=== PATIENT | male | born 1950 | race Caucasian/White ===

== ENCOUNTER → 2017-09-13 | Outpatient (CLI) | payer OTHER ==
[~2017-09-13] MED LIST: ALBU1NEB10 INH; ALBUAER19 INH; ASPI-435 PO; ATV/1 PO; CYAN500T PO; GLIM2TAB2 PO; HYDR-5688 PO; KETO0.5S33 OPR; LPT/40 PO; METF500T PO; MOME100A INH; NXM/40 PO; OXGN; PRED-301 PO; PRED1SUS OPR; SYMIN160 INH; TAMS0.4C38 PO
--- NOTE | 2017-09-13 14:33 | DIAGNOSTIC IMAGING REPORT ---
VIDEO SWALLOW CLINICAL HISTORY: 66 years-old Male with R06.02 Shortness of [id number] [id number] Aspiration pneumon. Acute shortness of breath TECHNIQUE: Video fluoroscopic evaluation of swallowing was performed in the AP and lateral projections by the speech pathology staff. The patient is fed nectar-thick and thin liquid barium, a barium coated wafer, and barium pudding. FLUOROSCOPY TIME: 2.1 minutes. 750 images were submitted. COMPARISON STUDY: Chest CT 10/11/2016. FINDINGS: There is trace penetration with thin liquids. No aspiration identified throughout the study. Mild tertiary contractions of the distal esophagus are noted. Prolonged oral pharyngeal phase with cracker consistency. Multilevel endplate spurring about the cervical spine. Swallowing function is otherwise unremarkable. Mild residue collection within the vallecula. IMPRESSION: 1. Trace laryngeal penetration with thin liquids. No aspiration identified. 2. Please see the speech pathologist report for detailed findings and recommendations. Electronically signed by: Cedric Purdy M.D. 09/13/2017 2:32 PM Dictated Date/Time: 09/13/2017 2:28 PM
--- NOTE | 2017-09-13 14:56 | SWALLOWING EVALUATION ---
HISTORY: This 66 year old man was referred for a video swallow study at [facility] in order to rule out aspiration and identify the safest consistencies for optimal oral intake. Patient reports he has episodes of coughing while eating/drinking food. He reports they do not occur all of the time, but when it happens, the coughing episode may last for several minutes and results in him expectorating food. PMH is significant for: COPD, GERD, HLD, DM2, and arthritis. Current diet is regular. PROCEDURE: The patient was seen in the Radiology Department of [facility] for the VFSS. Cursory examination of the oral cavity revealed the patient to have upper and lower dentition in good condition. Movement of the articulators was wnl. The patient was seated upright on a stool and was viewed in both the Anterior-Posterior (A-P) and Lateral planes. Volitional phonation exercises completed in the A-P plane revealed bilateral vocal fold movement. Vocal intensity was wnl. In the lateral plane, the patient was given the following boluses: 1 tsp. thin liquid barium x 2, single swallow thin liquid barium self-presented from a cup, sequential swallows of thin liquid barium self-presented from a straw, 1 tsp. nectar-thick liquid barium, single swallow nectar-thick liquid barium self-presented from a cup, 1 tsp. barium pudding, and 1 club cracker coated in barium pudding. The patient was then repositioned into the A-P plane and given the following boluses: 1 tsp. nectar thick barium and 1 tsp. barium pudding. RESULTS: Oral Stage: Lip closure was adequate. The patient was able to maintain a cohesive liquid bolus in the oral cavity during the liquid bolus hold task. Mastication was mildly slow. Lingual motion for bolus transport was also noted to be slow. There was retention lining the tongue and palate after the initial swallow. The initiation of the pharyngeal swallow was delayed occurred when the bolus head reached the valleculae. Pharyngeal Stage: Soft palate elevation was complete. Laryngeal elevation revealed partial superior movement of the thyroid cartilage and partial approximation of the arytenoids to the epiglottic base. Anterior hyoid excursion was partially reduced. Epiglottic deflection was incomplete and at times did not progress past the horizontal position. Laryngeal vestibular closure was incomplete, with a narrow column of contrast being located in the vestibule at the height of the swallow. The pharyngeal stripping wave was present yet diminished. Pharyngeal contraction was complete. There was complete distention and duration of the opening to the pharyngoesophageal segment (PES). Tongue base retraction was partially reduced with a narrow column of contrast located between the tongue base and pharyngeal wall during the swallow. There was trace retention located in the valleculae and pyriforms after the swallow. There was evidence of minimal laryngeal penetration with thin liquid, otherwise there was no evidence for aspiration during this study. Mild retention that remained in the valleculae with solids cleared with a second swallow. No other difficulty identified. Esophageal stage: There was mild distal retention in the esophagus with retrograde flow below the PES. The retention cleared with a liquid wash. SUMMARY/RECOMMENDATIONS: This patient presents with mild yasmeen-pharyngeal dysphagia. The following is recommended: 1. Regular diet, thin liquids. 2. Aspiration and GERD precautions. Straws OK. Fully upright for meals and for 30 minutes after meals. Do not lay flat, elevate head of the bed to at least 30 degrees at all time, to include while sleeping. 3. Safe swallow strategies: Alternate solids and liquids. A summary of the results and recommendations was discussed with the patient and with verbal understanding. Thank you for referral of this patient. Please contact me at if any additional information is needed.
== END | disposition home or self-care (01) ==
LOC: C.RAD 13:05
PROVIDERS: ATTEND Internal Medicine Critical Care Medicine
DX: J45.909 Unspecified asthma, uncomplicated (principal); J69.0 Pneumonitis due to inhalation of food and vomit; R06.02 Shortness of breath

== ENCOUNTER → 2017-09-20 | Outpatient (CLI) | payer OTHER ==
[~2017-09-20] MED LIST changes: -SYMIN160 INH
[2017-09-20 17:54] LABS: HEMATOCRIT 40.5 % (42-52); HEMOGLOBIN 13.1 g/dL (14.0-18.0); MEAN CELL VOLUME 83.2 fL (80-100); MEAN CORPUSCULAR HEMOGLOBIN 26.9 pg (25-34); MEAN CORPUSCULAR HGB CONC 32.3 g/dl (32-36); MEAN PLATELET VOLUME 10.9 fL (7.4-10.4); NUCLEATED RED BLOOD CELL ABS 0.02 K/uL (0-0); PLATELET COUNT 296 K/uL (130-400); RED CELL DISTRIBUTION WIDTH CV 16.3 % (11.5-14.5); RED CELL DISTRIBUTION WIDTH SD 49.1 fL (36.4-46.3); WHITE BLOOD COUNT 10.39 K/uL (4.8-10.8)
[2017-09-20 18:10] LABS: INR 0.9 (0.9-1.1); PTT PATIENT 22.6 SECONDS (21.0-31.0)
[2017-09-20 18:13] LABS: ALBUMIN 3.2 gm/dl (3.4-5.0); ALT/SGPT 35 U/L (12-78); AST/SGOT 18 U/L (15-37); BLOOD UREA NITROGEN 16 mg/dl (7-18); CALCIUM 8.6 mg/dl (8.5-10.1); CARBON DIOXIDE 29 mmol/L (21-32); CREATININE 1.06 mg/dl (0.60-1.40); GLUCOSE 111 mg/dl (70-99); POTASSIUM 3.8 mmol/L (3.5-5.1); SODIUM 140 mmol/L (136-145)
[2017-09-20 18:15] LABS: ALKALINE PHOSPHATASE 97 U/L (45-117)
== END | disposition home or self-care (01) ==
LOC: C.LABMFLN 11:48
PROVIDERS: ATTEND Internal Medicine Critical Care Medicine
DX: R06.02 Shortness of breath (principal); R91.8 Other nonspecific abnormal finding of lung field; J98.11 Atelectasis; J45.909 Unspecified asthma, uncomplicated

== ENCOUNTER → 2017-10-01 | Day surgery (SDC) | payer OTHER ==
--- NOTE | 2017-09-25 16:50 | History and Physical ---
History & Physical Date of Service Sep 25, 2017. History & Physical 66-year-old gentleman here for follow-up bronchoscopic evaluation of a longstanding history of shortness of breath and cough: Patient notably has a long history since of asthmatic bronchitis along with allergic rhinitis. Today continues to have intermittent shortness of breath but no signs of acute flare and also denies: Fever, chills, productive cough, pleurisy or classic cardiac chest pain. He has been previously seen by Dr. Sina Brink as well as Dr. Ministerio Acosta and provider Aris Michel. In the past Dr. Brink did evaluate the patient for Xolair which has never been introduced into his regimen. Total IgE 12/07/2014: 245KU/L 6 minute-walk study PFT 11/21/2016: Moderately severe COPD FEV1 52%, DLCO 44% Continue on his current medical regimen of ipratropium/albuterol nebulizer, Nexium, oxygen supplementation, prednisone 5 mg, via Ventolin HFA and Symbicort 160-4.5. (I should note Symbicort at of all his inhalers have been most beneficial to this patient.) Echocardiogram (October/2013) LA mildly dilated, RSVP= 29 mmHg, mild consent LVH, EF =60%, grade 1 diastolic dysfunction, normal right ventricle and atrium Video swallow 09/13/2017: Trace laryngeal penetration with thin liquids but no kanika aspiration identified PFT 11/21/2016([facility]): Moderately severe obstructive ventilatory disease with a DLCO of 44% CXR 07/11/2017 ([place]- acute respiratory failure): Stable bibasilar atelectasis compared to previous images back to 08/12/2016 CTA (09/30/2014): Diffuse emphysematous changes, decrease scar versus atelectatic changes a changes right base, stable hypodensity within the spleen CT ABD (07/09/2017): Motion artifact, scar versus atelectatic changes right lower lobe Active Problems 1. Abnormal CT scan, lung 2. Allergic rhinitis due to animal dander 3. Allergic rhinitis due to dust (J30.89) 4. Allergic rhinitis due to pollen (J30.1) 5. Aspiration pneumonia due to food (regurgitated) (J69.0) 6. Asthma (J45.909) 7. Atelectasis (J98.11) 8. Calcium kidney stone (N20.0) 9. Chronic sinusitis (J32.9) 10. Colon, diverticulosis (K57.30) 11. Diabetes mellitus (E11.9) 12. GERD without esophagitis (K21.9) 13. Hyperlipidemia (E78.5) 14. Oral thrush (B37.0) 15. Osteoporosis (M81.0) 16. Poor venous access (I87.8) 17. Pulmonary emphysema (J43.9) 18. Rhinitis, allergic (J30.9) 19. Shortness of breath (R06.02) 20. Tachycardia (R00.0) 21. Wheezing (R06.2) Surgical History 1. History of Eye Surgery 2. History of Hernia Repair 3. History of Kidney Surgery 4. History of Neck Surgery 5. History of Tonsillectomy Family History 1. Family history of bowel obstruction 2. Family history of coronary artery disease (Z82.49) 3. Family history of asthma (Z82.5) 4. Family history of coronary artery disease (Z82.49) 5. Family history of prostate cancer (Z80.42) Social History Former smoker (Z87.891) No alcohol use Current Meds 1. PredniSONE 10 MG Oral Tablet; TAKE 2 TABLETS DAILY DIRECTED 2. PredniSONE 5 MG Oral Tablet; TAKE 1 TABLET DIRECTED 3. Terbutaline Sulfate 2.5 MG Oral Tablet; TAKE 1 TABLETS 3 TIMES DAILY 4. Symbicort 160-4.5 MCG/ACT Inhalation Aerosol; INHALE 2 PUFFS TWICE DAILY 5. Ipratropium-Albuterol 0.5-2.5 (3) MG/3ML Inhalation Solution; USE 1 UNIT DOSE IN NEBULIZER 4 TIMES DAILY 6. Sucralfate 1 GM Oral Tablet; TAKE 1 TABLET EVERY 12 HOURS DAILY; Therapy: 20Oct2014 to (Evaluate:[id number]); Last Rx:20Oct2014 Ordered 7. Pataday 0.2 % Ophthalmic Solution; Install one drop in affected eyes every 12 hours as needed 8. Aspirin 81 MG TABS; TAKE 1 TABLET DAILY; 9. Ativan 1 MG Oral Tablet; TAKE 0.5 TABLET 3 TIMES DAILY 10. Caltrate 600+D 600-400 MG-UNIT TABS; TAKE DIRECTED; 11. Flomax 0.4 MG Oral Capsule; TAKE 2 CAPSULE Daily; 12. Fosamax 70 MG Oral Tablet; TAKE 1 TABLET ONCE WEEKLY 13. Glimepiride 4 MG Oral Tablet; TAKE 1 TABLET DAILY 14. Hydrocodone-Acetaminophen 5-325 MG Oral Tablet; TAKE 1 TO 2 TABLETS EVERY 4 TO 6 HOURS NEEDED 15. MetFORMIN HCl - 500 MG Oral Tablet; Take 1 tablet a day 16. Nasacort AQ 55 MCG/ACT AERS; USE 2 SPRAYS IN EACH NOSTRIL ONCE A DAY 17. NexIUM 40 MG Oral Capsule Delayed Release; TAKE 1 CAPSULE DAILY 18. Oxygen; 2LPM @ HS 19. PrednisoLONE 5 MG TABS; TAKE DIRECTED 20. TraMADol HCl - 50 MG Oral Tablet; TAKE ONE TABLET BY MOUTH EVERY FOUR HOURS NEEDED 21. TraZODone HCl - 50 MG Oral Tablet; TAKE 1 TO 2 TABLETS AT BEDTIME 22. Ventolin HFA 108 (90 Base) MCG/ACT Inhalation Aerosol Solution; INHALE 2 PUFFS EVERY 4 HOURS NEEDED 23. Vitamin D 1000 UNIT Oral Tablet; TAKE 1 TABLET DAILY; Allergies 1. Advair Diskus MISC 2. Amide Anesthetics 3. celecoxib 4. Clarithromycin TABS 5. Percocet TABS 6. Spiriva HandiHaler CAPS Immunizations Influenza --- Series1: 28-Mar-2014 PPSV --- Series1: 01-Jan-2009 Td/DT --- Series1: 24-Nov-2003 Tdap --- Series1: 04-Apr-2010 Vital Signs Weight: 230 lb 6 oz BMI Calculated: 32.13 BSA Calculated: 2.24 Blood Pressure: 124 / 80 Respiration: 18 Heart Rate: 102 O2 Saturation: 93, RA Temperature: 97.5 F Constitutional General appearance: No acute distress, well appearing and well nourished. Eyes Conjunctiva and lids: No swelling, erythema, or discharge. Pupils and irises: Equal, round and reactive to light. Ears, Nose, Mouth, and Throat External inspection of ears and nose: Normal. Otoscopic examination: Abnormal. Mild bilateral nasal erythema. Oropharynx: Abnormal. Mallampati 3 unable to perform good examination of the posterior pharynx. Pulmonary Respiratory effort: No increased work of breathing or signs of respiratory distress. Auscultation of lungs: Clear to auscultation. Cardiovascular Palpation of heart: Normal PMI, no thrills. Auscultation of heart: Normal rate and rhythm, normal S1 and S2, without murmurs. Examination of extremities for edema and/or varicosities: Normal. Abdomen Abdomen: Non-tender, no masses. Liver and spleen: No hepatomegaly or splenomegaly. Lymphatic Palpation of lymph nodes in neck: No lymphadenopathy. Musculoskeletal Gait and station: Normal. Digits and nails: Normal without clubbing or cyanosis. Inspection/palpation of joints, bones, and muscles: Normal. Skin Skin and subcutaneous tissue: Normal without rashes or lesions. Neurologic Cranial nerves: Cranial nerves 2-12 intact. Reflexes: 2+ and symmetric. Sensation: No sensory loss. Psychiatric Orientation to person, place and time: Normal. Mood and affect: Normal.
[~2017-10-01] VITALS: Ht 180.3 cm; Wt 104.3 kg
[~2017-10-01] MED LIST changes: +FENTANYL CITRATE INJ 50 MCG/1 ML 2 ML VIAL IV ONE; +LIDOCAINE 4% INH SOLN 4 ML BTL NEB ONE; +LIDOCAINE HCL 2% LOCAL 50ML VIAL INSTIL ONE; +LIDOCAINE VISCOUS 2% 100ML TOP ONE; +MIDAZOLAM HCL 5 MG/ML 1 ML VIAL IV ONE; +NURSING VERBAL MED ORDER ONE; +SODIUM CHLORIDE 0.9% 1000ML 1,000 ML IV SCH; +SYMIN160 INH
--- NOTE | 2017-10-01 07:16 | History and Physical ---
History & Physical Date of Service Oct 01, 2017. History & Physical 66-year-old gentleman here for bronchoscopic evaluation of on longstanding history of shortness of breath and cough: Patient notably has a long history since of asthmatic bronchitis along with allergic rhinitis. Today continues to have intermittent shortness of breath but no signs of acute flare and also denies: Fever, chills, productive cough, pleurisy or classic cardiac chest pain. He has been previously seen by Dr. Sina Brink as well as Dr. Ministerio Acosta and provider Aris Michel. In the past Dr. Brink did evaluate the patient for Xolair which has never been introduced into his regimen. Total IgE 12/07/2014: 245KU/L 6 minute-walk study PFT 11/21/2016: Moderately severe COPD FEV1 52%, DLCO 44% Continue on his current medical regimen of ipratropium/albuterol nebulizer, Nexium, oxygen supplementation, prednisone 5 mg, via Ventolin HFA and Symbicort 160-4.5. (I should note Symbicort at of all his inhalers have been most beneficial to this patient.) Echocardiogram (October/2013) LA mildly dilated, RSVP= 29 mmHg, mild consent LVH, EF =60%, grade 1 diastolic dysfunction, normal right ventricle and atrium Video swallow 09/13/2017: Trace laryngeal penetration with thin liquids but no kanika aspiration identified PFT 11/21/2016([facility]): Moderately severe obstructive ventilatory disease with a DLCO of 44% CXR 07/11/2017 ([place]- acute respiratory failure): Stable bibasilar atelectasis compared to previous images back to 08/12/2016 CTA (09/30/2014): Diffuse emphysematous changes, decrease scar versus atelectatic changes a changes right base, stable hypodensity within the spleen CT ABD (07/09/2017): Motion artifact, scar versus atelectatic changes right lower lobe Active Problems 1. Abnormal CT scan, lung (R91.8) 2. Allergic rhinitis due to animal dander (J30.81) 3. Allergic rhinitis due to dust (J30.89) 4. Allergic rhinitis due to pollen (J30.1) 5. Aspiration pneumonia due to food (regurgitated) (J69.0) 6. Asthma (J45.909) 7. Atelectasis (J98.11) 8. Calcium kidney stone (N20.0) 9. Chronic sinusitis (J32.9) 10. Colon, diverticulosis (K57.30) 11. Diabetes mellitus (E11.9) 12. GERD without esophagitis (K21.9) 13. Hyperlipidemia (E78.5) 14. Oral thrush (B37.0) 15. Osteoporosis (M81.0) 16. Poor venous access (I87.8) 17. Pulmonary emphysema (J43.9) 18. Rhinitis, allergic (J30.9) 19. Shortness of breath (R06.02) 20. Tachycardia (R00.0) 21. Wheezing (R06.2) Surgical History 1. History of Eye Surgery 2. History of Hernia Repair 3. History of Kidney Surgery 4. History of Neck Surgery 5. History of Tonsillectomy Family History 1. Family history of bowel obstruction (Z83.79) 2. Family history of coronary artery disease (Z82.49) 3. Family history of asthma (Z82.5) 4. Family history of coronary artery disease (Z82.49) 5. Family history of prostate cancer (Z80.42) Social History Former smoker (Z87.891) No alcohol use Current Meds 1. PredniSONE 10 MG Oral Tablet; TAKE 2 TABLETS DAILY DIRECTED; 2. PredniSONE 5 MG Oral Tablet; TAKE 1 TABLET DIRECTED 3. Terbutaline Sulfate 2.5 MG Oral Tablet; TAKE 1 TABLETS 3 TIMES DAILY 4. Symbicort 160-4.5 MCG/ACT Inhalation Aerosol; INHALE 2 PUFFS TWICE DAILY. RINSE 5. Ipratropium-Albuterol 0.5-2.5 (3) MG/3ML Inhalation Solution; USE 1 UNIT DOSE IN NEBULIZER 4 TIMES DAILY 6. Sucralfate 1 GM Oral Tablet; TAKE 1 TABLET EVERY 12 HOURS DAILY; 7. Pataday 0.2 % Ophthalmic Solution; Install one drop in affected eyes every 12 hours as 8. Aspirin 81 MG TABS; TAKE 1 TABLET DAILY 9. Ativan 1 MG Oral Tablet; TAKE 0.5 TABLET 3 TIMES DAILY 10. Caltrate 600+D 600-400 MG-UNIT TABS; TAKE DIRECTED 11. Flomax 0.4 MG Oral Capsule; TAKE 2 CAPSULE Daily 12. Fosamax 70 MG Oral Tablet; TAKE 1 TABLET ONCE WEEKLY 13. Glimepiride 4 MG Oral Tablet; TAKE 1 TABLET DAILY 14. Hydrocodone-Acetaminophen 5-325 MG Oral Tablet; TAKE 1 TO 2 TABLETS EVERY 4 TO 6 HOURS NEEDED 15. MetFORMIN HCl - 500 MG Oral Tablet; Take 1 tablet a day 16. Nasacort AQ 55 MCG/ACT AERS; USE 2 SPRAYS IN EACH NOSTRIL ONCE A DAY 17. NexIUM 40 MG Oral Capsule Delayed Release; TAKE 1 CAPSULE DAILY 18. Oxygen; 2LPM @ HS 19. PrednisoLONE 5 MG TABS; TAKE DIRECTED 20. TraMADol HCl - 50 MG Oral Tablet; TAKE ONE TABLET BY MOUTH EVERY FOUR HOURS NEEDED 21. TraZODone HCl - 50 MG Oral Tablet; TAKE 1 TO 2 TABLETS AT BEDTIME; 22. Ventolin HFA 108 (90 Base) MCG/ACT Inhalation Aerosol Solution; INHALE 2 PUFFS EVERY 4 HOURS NEEDED 23. Vitamin D 1000 UNIT Oral Tablet; TAKE 1 TABLET DAILY Allergies 1. Advair Diskus MISC 2. Amide Anesthetics 3. celecoxib 4. Clarithromycin TABS 5. Percocet TABS 6. Spiriva HandiHaler CAPS Immunizations Influenza --- Series1: 28-Mar-2014 PPSV --- Series1: 01-Jan-2009 Td/DT --- Series1: 24-Nov-2003 Tdap --- Series1: 04-Apr-2010 VIDEO SWALLOW 09/13/17 1. Trace laryngeal penetration with thin liquids. No aspiration identified. 2. Please see the speech pathologist report for detailed findings and recommendations. Vitals Vital Signs Recorded: 17Sep2017 02:35PM Weight: 230 lb 6 oz BMI Calculated: 32.13 BSA Calculated: 2.24 Blood Pressure: 124 / 80 Respiration: 18 Heart Rate: 102 O2 Saturation: 93, RA Temperature: 97.5 F Constitutional General appearance: No acute distress, well appearing and well nourished. Eyes Conjunctiva and lids: No swelling, erythema, or discharge. Pupils and irises: Equal, round and reactive to light. Ears, Nose, Mouth, and Throat External inspection of ears and nose: Normal. Otoscopic examination: Abnormal. Mild bilateral nasal erythema. Oropharynx: Abnormal. Mallampati 3 unable to perform good examination of the posterior pharynx. Pulmonary Respiratory effort: No increased work of breathing or signs of respiratory distress. Auscultation of lungs: Clear to auscultation. Cardiovascular Palpation of heart: Normal PMI, no thrills. Auscultation of heart: Normal rate and rhythm, normal S1 and S2, without murmurs. Examination of extremities for edema and/or varicosities: Normal. Abdomen Abdomen: Non-tender, no masses. Liver and spleen: No hepatomegaly or splenomegaly. Lymphatic Palpation of lymph nodes in neck: No lymphadenopathy. Musculoskeletal Gait and station: Normal. Digits and nails: Normal without clubbing or cyanosis. Inspection/palpation of joints, bones, and muscles: Normal. Skin Skin and subcutaneous tissue: Normal without rashes or lesions. Neurologic Cranial nerves: Cranial nerves 2-12 intact. Reflexes: 2+ and symmetric. Sensation: No sensory loss. Psychiatric Orientation to person, place and time: Normal. Mood and affect: Normal.
[2017-10-01 09:06] VITALS: BP 143/78; PULSE 88; TEMP 36.6; O2SAT 94; Ht 180.3 cm; Wt 104.3 kg
--- NOTE | 2017-10-01 09:55 | History & Physical Bridge Note ---
H&P Re-Evaluation Bridge Note: I have examined the patient, reviewed the History & Physical and in the interval since the performance of the History & Physical I have noted the following changes of clinical significance: No changes noted
--- NOTE | 2017-10-01 09:55 | Pre Sedation Assessment ---
Pre Sedation Assessment General Date of Sedation: Oct 01, 2017. Vital Signs Past 12 Hours Date Time Temp Pulse Resp B/P (MAP) Pulse Ox O2 Delivery O2 Flow Rate FiO2 10/01/17 09:06 36.6 88 20 143/78 (99) 94 Room Air Review Cardiovascular: regular rate, rhythm, no edema, no gallop, no JVD, no murmur, normal peripheral pulses Lungs: + wheezing Pre-Sedation Airway Assessment Smoking Status: Former Smoker Hx of Sleep Apnea: No Hx of difficult intubation: No Short Thick Neck: Yes Thyro-mental Distance: > 3 Finger Breadths Oral Cavity: Dentures Mallampati Classification: Class II ASA Classification: Class II NPO Status Date of Last Intake of Fluids: Sep 30, 2017 Time of Last Intake of Fluids: 1899 Date of Last Intake of Solids: Sep 30, 2017 Time of Last Intake of Solids: 1899 Procedure Planning Contraindications for Sedation: None Current Medications Reviewed: Yes Notes The planned sedation has been discussed with the patient. Informed Consent was obtained. I have identified the patient, determined the appropriateness of sedation and have assessed the patient immediately prior to the procedure. All medicine(s) and interventions are by my order.
--- NOTE | 2017-10-01 10:42 | Post Sedation Assessment ---
Post Sedation Assessment General Date of Sedation Oct 01, 2017. Vital Signs: Vital Signs Past 12 Hours Date Time Temp Pulse Resp B/P (MAP) Pulse Ox O2 Delivery O2 Flow Rate FiO2 10/01/17 10:35 85 20 172/95 99 Mask 4 10/01/17 10:30 94 22 171/94 98 Mask 4 10/01/17 10:25 85 22 166/95 99 Mask 4 10/01/17 10:20 82 20 165/94 99 Mask 4 10/01/17 10:15 89 18 145/69 100 Mask 8 10/01/17 10:12 89 18 130/90 100 Mask 8 10/01/17 09:06 36.6 88 20 143/78 (99) 94 Room Air Post Procedure Recovery Score Activity: (2) Moves 4 extremities * Respiration: (2) Deep breath/cough Circulation: (2) +/-20% PreAnes Value Consciousness: (2) Fully Awake Oxygen Saturation: (2) > 92% On Room Air Discharge Sedation Level of Care: Fast Track Phase II Post Sedation Plan On clinical assessment, the patient appears to have tolerated the sedation without complications. Patient is recovering as anticipated. Patient will continue to be monitored by nursing and may be discharged when sedation discharge criteria are met per below protocol. Upon Completions of procedure and additional 15 minutes continue every 5 minute vital signs and the P.A.R. score; then discharge to a Phase I or Fast Track to Phase II per the following guidelines: * Discharge Patient to appropriate Phase II area if PAR is 8 or greater or return to pre- procedure baseline. The post - procedure orders will be as directed. * If PAR score is less than 8 or not return to pre-procedure baseline then patient will follow Phase I monitoring till PAR is reached for Phase II. The Phase I may be done in procedure room or may call to secure a Phase I area. * If naloxone or flumazenil are used for reversal, hold in Phase I for an additional 60 -120 minutes before discharge to Phase II. Please call the Sedation Physician to re-evaluate and complete post-note for discharge to Phase II area. Do NOT discharge from procedure sedation or Phase 1 until post- sedation evaluation note is complete by procedure /sedation MD Sedation Discharge Instructions to be given to the patient at discharge to home.
--- NOTE | 2017-10-01 10:44 | Bronchoscopy Procedure Note ---
Bronchoscopy Procedure Note Procedure: Bronchoscopy, conscious sedation, bronchial lavage Consent: Obtained through the patient placed into the chart Pre-procedural diagnosis: Chronic cough Post-procedural diagnosis: Chronic cough, chronic rhinitis Start time: 1015 End time: 1038 Total time: 23 minutes Analgesia: 2% liquid lidocaine: Via nebulizer 4% gel lidocaine: Via right naris 2% liquid lidocaine: Via bronchoscopy Sedation: Versed IV: 5 mg Fentanyl IV: 100 g Procedure: The Olympus video bronchoscope was used for this procedure and passed down through the right naris but created too much discomfort and passed to the OR for Right naris/posterior naris/posterior oropharynx: Diffuse erythema with small nasal polyps noted in the right naris, diffuse erythema noted in the proximal portion of the left naris Retroflex: The bronchoscope was retroflexed off the soft palate and there is diffuse erythema noted on the posterior nasopharyngeal wall as well as bilateral posterior nare I Glottis: Functionally within normal limits but appear to have a right-sided angulation versus previous fracture Vocal cords: Proper abduction and abduction, anatomically within normal limits Subglottis/trachea/Samina: Anatomically within normal limits Right bronchial tree: Right mainstem bronchus: Anatomically within normal limits Right upper lobe: Anatomically within normal limits Bronchus intermedius: Anatomically within normal limits Right middle lobe: Anatomically within normal limits Right lower lobe: Anatomically within normal limits Findings: Right lower lobe mucus plugging Left bronchial tree: Left mainstem bronchus: Anatomically within normal limits Left upper lobe: Anatomically within normal limits Lingula: Anatomically within normal limits Left lower lobe: Anatomically within normal limits Findings: Mucus plugging throughout the left lower lobe Bronchial alveolar lavage: Right lower lobe EBL: None Complications: None Follow-up: ASU
--- NOTE | 2017-10-01 10:47 | Discharge Instructions ---
Discharge Instructions Date of Service Oct 01, 2017. Admission Reason for Admission: Pulmonary Emphysema, Shortness Of Breath Discharge Discharge Diagnosis / Problem: Chronic cough with associated rhinitis Discharge Goals Goal(s): Improve function, Diagnostic testing Activity Recommendations Activity Limitations: resume your previous activity Lifting Limitations: none Exercise/Sports Limitations: as tolerated Driving or Machine Use: resume 1 day after discharge . Instructions / Follow-Up Instructions / Follow-Up Follow-up in the [facility] pulmonary clinic Current Hospital Diet Patient's current hospital diet: Discharge Diet Recommended Diet: Regular Diet Procedures Procedures Performed: Bronchoscopy, conscious sedation, bronchial lavage Pending Studies Studies pending at discharge: no Medical Emergencies . Who to Call and When: Medical Emergencies: If at any time you feel your situation is an emergency, please call 911 immediately. . Non-Emergent Contact Non-Emergency issues call your: [employer] Call Non-Emergent contact if: you have a fever, temperature is above 101 . . "Provider Documentation" section prepared by Riaz Velazquez. .
[2017-10-01 11:05] VITALS: BP 122/66; PULSE 82; TEMP 36.8; O2SAT 97
[2017-10-01 11:33] VITALS: BP 134/67; PULSE 82; TEMP 36.4; O2SAT 97
[2017-10-01 12:05] VITALS: BP 140/72; PULSE 75; TEMP 36.7; O2SAT 93
[2017-10-01 12:35] VITALS: BP 152/79; PULSE 79; TEMP 37; O2SAT 95
[2017-10-01 13:05] VITALS: BP 149/85; PULSE 87; O2SAT 95
== END | disposition home or self-care (01) ==
LOC: C.ACU 08:26
PROVIDERS: ATTEND Internal Medicine Critical Care Medicine
DX: R05 Cough (principal); J31.0 Chronic rhinitis; J45.909 Unspecified asthma, uncomplicated; E11.9 Type 2 diabetes mellitus without complications; E78.5 Hyperlipidemia, unspecified; Z98.890 Other specified postprocedural states; Z90.89 Acquired absence of other organs; Z82.49 Family history of ischemic heart disease and other diseases of the circulatory system; Z82.5 Family history of asthma and other chronic lower respiratory diseases; Z80.42 Family history of malignant neoplasm of prostate; Z87.891 Personal history of nicotine dependence; Z79.899 Other long term (current) drug therapy; Z79.82 Long term (current) use of aspirin; Z88.8 Allergy status to other drugs, medicaments and biological substances